=== PATIENT | female | born 1985 | race African-American/Black ===

== ENCOUNTER 2022-02-20 19:37 | Inpatient (IN) | payer OTHER ==
[~2022-02-20] VITALS: Ht 162.6 cm; Wt 83.0 kg
[2022-02-20 19:37] VITALS: BP 121/80
[2022-02-20] MEDS ORDERED: PROCHLORPERAZINE 10MG/2ML VIAL IV PRN (23:15)
[2022-02-20] MEDS ORDERED: MAGNESIUM/ALUMINUM HYDROXIDE/SIMETHICONE 30ML UDC PO PRN (23:15)
[2022-02-20] MEDS ORDERED: HALOPERIDOL LACTATE 5MG/ML VIAL IM PRN (23:15)
[2022-02-20] MEDS ORDERED: BISACODYL 10MG SUPP PR PRN (23:15)
[2022-02-20] MEDS ORDERED: POTASSIUM CHLORIDE INJ 40 MEQ in DEXT 5% WATER 250 ML IV PRN (23:15)
[2022-02-20] MEDS ORDERED: KCL 20MEQ/100ML PREMIX 100 ML IV PRN (23:15)
[2022-02-20] MEDS ORDERED: SENNOSIDES/DOCUSATE SOD 8.6/50MG TABLET PO PRN (23:15)
[2022-02-20] MEDS ORDERED: TOBRAMYCIN 80 MG PREMIX 100 ML IV SCH (23:15)
[2022-02-20] MEDS ORDERED: POTASSIUM BICARB/CIT ACID 25 MEQ TABLET.EFF PO PRN (23:15)
[2022-02-21] MEDS ORDERED: *TOBRAMYCIN PER PHARMACY XX SCH (01:30)
[2022-02-21] MEDS: MEROPENEM 1,000 MG in SODIUM CHLORIDE 0.9% 100 ML IV SCH ×3 (03:05→21:27)
[2022-02-21] MEDS ORDERED: TOBRAMYCIN SULFATE IV SCH (05:00)
[2022-02-21] MEDS ORDERED: DEXT 5% IV SCH (05:00)
[2022-02-21] MEDS ORDERED: WATER IV SCH (05:00)
[2022-02-21] MEDS: ALBUTEROL (0.083%) 2.5MG/3ML NEB HHN SCH ×3 (07:41→20:16)
[2022-02-21 08:00] VITALS: BP 111/71
[2022-02-21] MEDS: FERROUS SULFATE 300MG/5ML UDC PO SCH ×3 (08:32→18:53)
[2022-02-21] MEDS: QUETIAPINE FUMARATE 25MG TABLET PO SCH ×2 (08:33→18:53)
[2022-02-21] MEDS: METHOCARBAMOL 500MG TABLET PO SCH ×3 (08:33→18:53)
[2022-02-21] MEDS: MAGNESIUM OXIDE 400MG TABLET PO SCH (08:33)
[2022-02-21] MEDS: ASCORBIC ACID 500 MG TABLET PO SCH (08:33)
[2022-02-21] MEDS: SCOPOLAMINE HYDROBROMIDE PATCH 72HR TD SCH (08:34)
[2022-02-21] MEDS: PANTOPRAZOLE 40MG DR TABLET PO SCH ×2 (08:34→18:53)
[2022-02-21] MEDS: ENOXAPARIN 40MG/0.4ML SYR SUBCUT SCH (08:35)
[2022-02-21] MEDS ORDERED: LEVETIRACETAM 500MG PREMIX 100 ML IV SCH (09:00)
[2022-02-21] MEDS: POLYETHYLENE GLYCOL 3350 (17GM) 1 DOSE PACK PO SCH (09:00)
[2022-02-21] MEDS: POTASSIUM CHLORIDE 20MEQ TABLET SR PO SCH (09:00)
[2022-02-21] MEDS: MICAFUNGIN 100 MG in SODIUM CHLORIDE 0.9% 100 ML IV SCH (15:57)
[2022-02-21] MEDS ORDERED: LORAZEPAM 1MG TABLET PO NR (16:15)
[2022-02-21] MEDS: TOBRAMYCIN SULFATE 140 MG in SODIUM CHLORIDE 0.9% 100 ML IV SCH (19:16)
[2022-02-21 20:00] VITALS: BP 96/55
[2022-02-21] MEDS ORDERED: EPOETIN ALFA 4000UNITS/ML VIAL SUBCUT SCH (21:00)
[2022-02-21] MEDS: LEVETIRACETAM 500MG TABLET PO SCH (21:27)
[2022-02-22] VITALS: BP 119/69
[2022-02-22 00:10] LABS: CLARITY URINE CLEAR (CLEAR); COLOR URINE YELLOW (YELLOW); KETONES URINE NEGATIVE (NEGATIVE); LEUKOCYTE ESTERASE URINE NEGATIVE (NEGATIVE); NITRITE URINE NEGATIVE (NEGATIVE); OCCULT BLOOD URINE NEGATIVE (NEGATIVE); PH URINE 6.5 (4.5-8.0); PROTEIN URINE NEGATIVE (NEGATIVE); SPECIFIC GRAVITY URINE 1.017 (1.005-1.030); UROBILINOGEN URINE 0.2 E.U./dL (0.2-1.0)
[2022-02-22] MEDS: ALBUTEROL (0.083%) 2.5MG/3ML NEB HHN SCH ×4 (01:10→21:49)
[2022-02-22] MEDS: MEROPENEM 1,000 MG in SODIUM CHLORIDE 0.9% 100 ML IV SCH ×3 (05:17→21:24)
[2022-02-22] MEDS: TOBRAMYCIN SULFATE 140 MG in SODIUM CHLORIDE 0.9% 100 ML IV SCH ×2 (06:09→18:16)
[2022-02-22 08:00] VITALS: BP 99/59
[2022-02-22] MEDS: FERROUS SULFATE 300MG/5ML UDC PO SCH ×3 (09:00→16:53)
[2022-02-22] MEDS: ENOXAPARIN 40MG/0.4ML SYR SUBCUT SCH (09:00)
[2022-02-22] MEDS: POLYETHYLENE GLYCOL 3350 (17GM) 1 DOSE PACK PO SCH (09:09)
[2022-02-22] MEDS: PANTOPRAZOLE 40MG DR TABLET PO SCH ×2 (09:11→16:56)
[2022-02-22] MEDS: LEVETIRACETAM 500MG TABLET PO SCH ×2 (09:11→21:27)
[2022-02-22] MEDS: QUETIAPINE FUMARATE 25MG TABLET PO SCH ×2 (09:11→16:56)
[2022-02-22] MEDS: POTASSIUM CHLORIDE 20MEQ TABLET SR PO SCH (09:11)
[2022-02-22] MEDS: ASCORBIC ACID 500 MG TABLET PO SCH (09:12)
[2022-02-22] MEDS: METHOCARBAMOL 500MG TABLET PO SCH ×3 (09:12→16:56)
[2022-02-22] MEDS: MAGNESIUM OXIDE 400MG TABLET PO SCH (09:13)
[2022-02-22 10:01] LABS: BASOPHILS % 0.9 % (0.0-2.0); HEMATOCRIT. 35.3 % (36.0-48.0); HEMOGLOBIN. 11.4 g/dL (12.0-16.0); LYMPHOCYTES % 27.4 % (20.0-50.0); MEAN CORPUSCULAR VOLUME 86.9 fL (81.0-99.0); MEAN PLATELET VOLUME 8.2 fl (7.4-10.4); MONOCYTES % 5.4 % (2.0-8.0); NEUTROPHILS % 63.3 % (40.0-76.0); PLATELET 363 x1000/uL (130-400); RED BLOOD CELL COUNT 4.07 mill/uL (4.2-5.4); RED CELL DISTRIBUTION WIDTH 15.1 % (11.6-14.6)
[2022-02-22 10:04] LABS: CHLORIDE 104 mEq/L (98-107)
[2022-02-22 10:21] LABS: HDL CHOLESTEROL 48 mg/dL (40-59); LDL CHOLESTEROL 127 mg/dL (5-100); TOBRAMYCIN RANDOM 3.1 ucg/mL; TOTAL IRON BINDING CAPACITY 300 ug/dL (250-450)
[2022-02-22 11:27] LABS: FOLIC ACID (FOLATE) SERUM 7.1 ng/mL (>5.38)
[2022-02-22] MEDS: MICAFUNGIN 100 MG in SODIUM CHLORIDE 0.9% 100 ML IV SCH (14:18)
[2022-02-22] MEDS: CYANOCOBALAMIN 1000MCG/ML VIAL IM SCH (15:36)
[2022-02-22 20:00] VITALS: BP 98/54
[2022-02-23] VITALS: BP 99/64
[2022-02-23] MEDS: ALBUTEROL (0.083%) 2.5MG/3ML NEB HHN SCH ×2 (01:44→22:03)
[2022-02-23] MEDS: MEROPENEM 1,000 MG in SODIUM CHLORIDE 0.9% 100 ML IV SCH ×2 (05:04→16:51)
[2022-02-23] MEDS: TOBRAMYCIN SULFATE 140 MG in SODIUM CHLORIDE 0.9% 100 ML IV SCH ×2 (05:56→21:07)
[2022-02-23 08:00] VITALS: BP 108/76
[2022-02-23] MEDS: POLYETHYLENE GLYCOL 3350 (17GM) 1 DOSE PACK PO SCH (09:00)
[2022-02-23] MEDS: FERROUS SULFATE 300MG/5ML UDC PO SCH ×4 (09:00→17:00)
[2022-02-23] MEDS: METHOCARBAMOL 500MG TABLET PO SCH ×3 (10:06→16:52)
[2022-02-23] MEDS: MAGNESIUM OXIDE 400MG TABLET PO SCH (10:07)
[2022-02-23] MEDS: CYANOCOBALAMIN 1000MCG/ML VIAL IM SCH (10:07)
[2022-02-23] MEDS: ASCORBIC ACID 500 MG TABLET PO SCH (10:07)
[2022-02-23] MEDS: PANTOPRAZOLE 40MG DR TABLET PO SCH ×2 (10:07→16:51)
[2022-02-23] MEDS: QUETIAPINE FUMARATE 25MG TABLET PO SCH ×2 (10:08→16:51)
[2022-02-23] MEDS: LEVETIRACETAM 500MG TABLET PO SCH ×2 (10:08→20:59)
[2022-02-23] MEDS: POTASSIUM CHLORIDE 20MEQ TABLET SR PO SCH (10:08)
[2022-02-23] MEDS: ENOXAPARIN 40MG/0.4ML SYR SUBCUT SCH (10:20)
[2022-02-23] MEDS: MICAFUNGIN 100 MG in SODIUM CHLORIDE 0.9% 100 ML IV SCH (14:25)
[2022-02-23 20:00] VITALS: BP 96/56
[2022-02-24] MEDS: ALBUTEROL (0.083%) 2.5MG/3ML NEB HHN SCH ×3 (07:42→21:00)
[2022-02-24 08:00] VITALS: BP 117/71
[2022-02-24] MEDS: FERROUS SULFATE 300MG/5ML UDC PO SCH ×3 (08:45→16:21)
[2022-02-24] MEDS: CYANOCOBALAMIN 1000MCG/ML VIAL IM SCH (08:45)
[2022-02-24] MEDS: ENOXAPARIN 40MG/0.4ML SYR SUBCUT SCH (08:45)
[2022-02-24] MEDS: SCOPOLAMINE HYDROBROMIDE PATCH 72HR TD SCH (08:45)
[2022-02-24] MEDS: LEVETIRACETAM 500MG TABLET PO SCH ×2 (09:00→21:55)
[2022-02-24] MEDS: POLYETHYLENE GLYCOL 3350 (17GM) 1 DOSE PACK PO SCH (10:10)
[2022-02-24] MEDS: METHOCARBAMOL 500MG TABLET PO SCH ×2 (13:53→16:24)
[2022-02-24] MEDS: MEROPENEM 1,000 MG in SODIUM CHLORIDE 0.9% 100 ML IV SCH ×2 (13:54→21:56)
[2022-02-24] MEDS: MICAFUNGIN 100 MG in SODIUM CHLORIDE 0.9% 100 ML IV SCH (15:04)
[2022-02-24] MEDS: QUETIAPINE FUMARATE 25MG TABLET PO SCH (16:17)
[2022-02-24] MEDS: PANTOPRAZOLE 40MG DR TABLET PO SCH (16:17)
[2022-02-24] MEDS: TOBRAMYCIN SULFATE 140 MG in SODIUM CHLORIDE 0.9% 100 ML IV SCH (18:11)
[2022-02-24 20:06] VITALS: BP 105/50
[2022-02-25] MEDS: MEROPENEM 1,000 MG in SODIUM CHLORIDE 0.9% 100 ML IV SCH ×3 (05:19→21:10)
[2022-02-25] MEDS: TOBRAMYCIN SULFATE 140 MG in SODIUM CHLORIDE 0.9% 100 ML IV SCH ×2 (06:48→19:09)
[2022-02-25 08:00] VITALS: BP 117/71
[2022-02-25] MEDS: FERROUS SULFATE 300MG/5ML UDC PO SCH ×3 (10:10→17:00)
[2022-02-25] MEDS: ASCORBIC ACID 500 MG TABLET PO SCH ×2 (10:10→10:11)
[2022-02-25] MEDS: POTASSIUM CHLORIDE 20MEQ TABLET SR PO SCH ×2 (10:10→10:11)
[2022-02-25] MEDS: CYANOCOBALAMIN 1000MCG/ML VIAL IM SCH (10:10)
[2022-02-25] MEDS: POLYETHYLENE GLYCOL 3350 (17GM) 1 DOSE PACK PO SCH (10:10)
[2022-02-25] MEDS: ENOXAPARIN 40MG/0.4ML SYR SUBCUT SCH (10:10)
[2022-02-25] MEDS: MAGNESIUM OXIDE 400MG TABLET PO SCH ×2 (10:10→10:11)
[2022-02-25] MEDS: METHOCARBAMOL 500MG TABLET PO SCH ×3 (10:11→18:05)
[2022-02-25] MEDS: PANTOPRAZOLE 40MG DR TABLET PO SCH ×2 (10:11→18:05)
[2022-02-25] MEDS: LEVETIRACETAM 500MG TABLET PO SCH ×2 (10:11→21:10)
[2022-02-25] MEDS: QUETIAPINE FUMARATE 25MG TABLET PO SCH ×2 (10:11→18:05)
[2022-02-25] MEDS: ALBUTEROL (0.083%) 2.5MG/3ML NEB HHN SCH ×3 (10:25→21:05)
[2022-02-25] MEDS: MICAFUNGIN 100 MG in SODIUM CHLORIDE 0.9% 100 ML IV SCH (16:55)
[2022-02-25 20:14] VITALS: BP 116/73
[2022-02-26] MEDS: ALBUTEROL (0.083%) 2.5MG/3ML NEB HHN SCH ×2 (02:50→22:09)
[2022-02-26 03:11] LABS: BASOPHILS % 0.8 % (0.0-2.0); EOSINOPHILS % 6.7 % (0.0-5.0); HEMATOCRIT. 31.1 % (36.0-48.0); HEMOGLOBIN. 10.3 g/dL (12.0-16.0); LYMPHOCYTES % 36.4 % (20.0-50.0); MEAN CORPUSCULAR HEMOGLOBIN 28.5 pg (28.0-32.0); MEAN CORPUSCULAR VOLUME 86.6 fL (81.0-99.0); MEAN PLATELET VOLUME 7.7 fl (7.4-10.4); MONOCYTES % 8.9 % (2.0-8.0); NEUTROPHILS % 47.2 % (40.0-76.0); PLATELET 275 x1000/uL (130-400); RED BLOOD CELL COUNT 3.59 mill/uL (4.2-5.4); RED CELL DISTRIBUTION WIDTH 14.7 % (11.6-14.6)
[2022-02-26 03:25] LABS: CHLORIDE 107 mEq/L (98-107)
[2022-02-26 03:34] LABS: TOBRAMYCIN RANDOM 1.8 ucg/mL
[2022-02-26] MEDS: MEROPENEM 1,000 MG in SODIUM CHLORIDE 0.9% 100 ML IV SCH ×3 (05:51→21:02)
[2022-02-26] MEDS: TOBRAMYCIN SULFATE 140 MG in SODIUM CHLORIDE 0.9% 100 ML IV SCH ×2 (06:42→17:59)
[2022-02-26 08:00] VITALS: BP 114/76
[2022-02-26] MEDS: ENOXAPARIN 40MG/0.4ML SYR SUBCUT SCH (09:00)
[2022-02-26] MEDS: FERROUS SULFATE 300MG/5ML UDC PO SCH ×3 (09:00→17:53)
[2022-02-26] MEDS: POLYETHYLENE GLYCOL 3350 (17GM) 1 DOSE PACK PO SCH (09:00)
[2022-02-26] MEDS: MAGNESIUM OXIDE 400MG TABLET PO SCH (10:07)
[2022-02-26] MEDS: CYANOCOBALAMIN 1000MCG/ML VIAL IM SCH (10:07)
[2022-02-26] MEDS: PANTOPRAZOLE 40MG DR TABLET PO SCH ×2 (10:08→17:53)
[2022-02-26] MEDS: ASCORBIC ACID 500 MG TABLET PO SCH (10:08)
[2022-02-26] MEDS: QUETIAPINE FUMARATE 25MG TABLET PO SCH ×2 (10:08→17:53)
[2022-02-26] MEDS: METHOCARBAMOL 500MG TABLET PO SCH ×3 (10:08→17:53)
[2022-02-26] MEDS: POTASSIUM CHLORIDE 20MEQ TABLET SR PO SCH (10:08)
[2022-02-26] MEDS: LEVETIRACETAM 500MG TABLET PO SCH ×2 (10:11→21:01)
[2022-02-26] MEDS: MICAFUNGIN 100 MG in SODIUM CHLORIDE 0.9% 100 ML IV SCH (16:43)
[2022-02-26 20:00] VITALS: BP 98/54
[2022-02-26] MEDS: ATORVASTATIN CALCIUM 10MG TABLET PO SCH (21:02)
[2022-02-27] MEDS: MEROPENEM 1,000 MG in SODIUM CHLORIDE 0.9% 100 ML IV SCH ×3 (06:30→21:55)
[2022-02-27 08:00] VITALS: BP 116/86
[2022-02-27] MEDS: SCOPOLAMINE HYDROBROMIDE PATCH 72HR TD SCH (09:00)
[2022-02-27] MEDS: POLYETHYLENE GLYCOL 3350 (17GM) 1 DOSE PACK PO SCH (09:00)
[2022-02-27] MEDS: CYANOCOBALAMIN 1000MCG/ML VIAL IM SCH (09:57)
[2022-02-27] MEDS: MAGNESIUM OXIDE 400MG TABLET PO SCH (09:58)
[2022-02-27] MEDS: FERROUS SULFATE 300MG/5ML UDC PO SCH ×3 (09:58→16:56)
[2022-02-27] MEDS: LEVETIRACETAM 500MG TABLET PO SCH ×2 (09:58→21:55)
[2022-02-27] MEDS: METHOCARBAMOL 500MG TABLET PO SCH ×3 (09:58→16:56)
[2022-02-27] MEDS: QUETIAPINE FUMARATE 25MG TABLET PO SCH ×2 (09:58→16:58)
[2022-02-27] MEDS: PANTOPRAZOLE 40MG DR TABLET PO SCH ×2 (09:58→16:56)
[2022-02-27] MEDS: ASCORBIC ACID 500 MG TABLET PO SCH (09:58)
[2022-02-27] MEDS: ENOXAPARIN 40MG/0.4ML SYR SUBCUT SCH (09:58)
[2022-02-27] MEDS: POTASSIUM CHLORIDE 20MEQ TABLET SR PO SCH (09:58)
[2022-02-27] MEDS: TOBRAMYCIN SULFATE 140 MG in SODIUM CHLORIDE 0.9% 100 ML IV SCH ×2 (13:02→23:48)
[2022-02-27] MEDS: MICAFUNGIN 100 MG in SODIUM CHLORIDE 0.9% 100 ML IV SCH (16:56)
[2022-02-27 19:06] LABS: 25-HYDROXY VITAMIN D3 27 ng/mL (.)
[2022-02-27 20:00] VITALS: BP 104/56
[2022-02-27] MEDS: ATORVASTATIN CALCIUM 10MG TABLET PO SCH (21:55)
[2022-02-28] MEDS: MEROPENEM 1,000 MG in SODIUM CHLORIDE 0.9% 100 ML IV SCH ×3 (06:11→21:04)
[2022-02-28 08:00] VITALS: BP 90/46
[2022-02-28] MEDS: MAGNESIUM OXIDE 400MG TABLET PO SCH (09:00)
[2022-02-28] MEDS: FERROUS SULFATE 300MG/5ML UDC PO SCH ×4 (09:00→17:00)
[2022-02-28] MEDS: POLYETHYLENE GLYCOL 3350 (17GM) 1 DOSE PACK PO SCH (09:00)
[2022-02-28] MEDS: CYANOCOBALAMIN 1000MCG/ML VIAL IM SCH (09:00)
[2022-02-28] MEDS: PANTOPRAZOLE 40MG DR TABLET PO SCH ×2 (09:45→17:05)
[2022-02-28] MEDS: LEVETIRACETAM 500MG TABLET PO SCH ×2 (09:45→21:05)
[2022-02-28] MEDS: METHOCARBAMOL 500MG TABLET PO SCH ×3 (09:45→17:05)
[2022-02-28] MEDS: ASCORBIC ACID 500 MG TABLET PO SCH (09:45)
[2022-02-28] MEDS: QUETIAPINE FUMARATE 25MG TABLET PO SCH ×2 (09:45→17:05)
[2022-02-28] MEDS: POTASSIUM CHLORIDE 20MEQ TABLET SR PO SCH (09:54)
[2022-02-28] MEDS: ENOXAPARIN 40MG/0.4ML SYR SUBCUT SCH (09:55)
[2022-02-28] MEDS: TOBRAMYCIN SULFATE 140 MG in SODIUM CHLORIDE 0.9% 100 ML IV SCH (12:59)
[2022-02-28] MEDS: MICAFUNGIN 100 MG in SODIUM CHLORIDE 0.9% 100 ML IV SCH (16:33)
[2022-02-28] MEDS: ERGOCALCIFEROL 50000UNITS CAPSULE PO SCH (17:05)
[2022-02-28 20:00] VITALS: BP 111/54
[2022-02-28] MEDS: ATORVASTATIN CALCIUM 10MG TABLET PO SCH (21:05)
[2022-03-01] MEDS: TOBRAMYCIN SULFATE 140 MG in SODIUM CHLORIDE 0.9% 100 ML IV SCH ×3 (00:36→23:53)
[2022-03-01] MEDS: ALBUTEROL (0.083%) 2.5MG/3ML NEB HHN SCH ×4 (01:21→20:30)
[2022-03-01] MEDS: MEROPENEM 1,000 MG in SODIUM CHLORIDE 0.9% 100 ML IV SCH ×3 (05:35→22:07)
[2022-03-01 08:00] VITALS: BP 119/90
[2022-03-01] MEDS: POTASSIUM CHLORIDE 20MEQ TABLET SR PO SCH (08:11)
[2022-03-01] MEDS: FERROUS SULFATE 300MG/5ML UDC PO SCH ×3 (08:11→16:09)
[2022-03-01] MEDS: PANTOPRAZOLE 40MG DR TABLET PO SCH ×2 (08:11→16:08)
[2022-03-01] MEDS: METHOCARBAMOL 500MG TABLET PO SCH ×3 (08:11→16:08)
[2022-03-01] MEDS: LEVETIRACETAM 500MG TABLET PO SCH ×2 (08:11→20:41)
[2022-03-01] MEDS: QUETIAPINE FUMARATE 25MG TABLET PO SCH ×2 (08:12→16:09)
[2022-03-01] MEDS: ASCORBIC ACID 500 MG TABLET PO SCH (08:13)
[2022-03-01] MEDS: POLYETHYLENE GLYCOL 3350 (17GM) 1 DOSE PACK PO SCH (08:15)
[2022-03-01] MEDS: ENOXAPARIN 40MG/0.4ML SYR SUBCUT SCH (08:15)
[2022-03-01] MEDS: MAGNESIUM OXIDE 400MG TABLET PO SCH (08:17)
[2022-03-01] MEDS: MICAFUNGIN 100 MG in SODIUM CHLORIDE 0.9% 100 ML IV SCH (16:11)
[2022-03-01 20:00] VITALS: BP 113/71
[2022-03-01] MEDS: ATORVASTATIN CALCIUM 10MG TABLET PO SCH (20:41)
[2022-03-02] MEDS: MEROPENEM 1,000 MG in SODIUM CHLORIDE 0.9% 100 ML IV SCH ×3 (05:01→22:22)
[2022-03-02 06:09] LABS: BASOPHILS % 0.9 % (0.0-2.0); EOSINOPHILS % 5.5 % (0.0-5.0); HEMATOCRIT. 29.5 % (36.0-48.0); HEMOGLOBIN. 9.8 g/dL (12.0-16.0); MEAN CORPUSCULAR HEMOGLOBIN 28.9 pg (28.0-32.0); MEAN CORPUSCULAR VOLUME 87.2 fL (81.0-99.0); MEAN PLATELET VOLUME 8.2 fl (7.4-10.4); MONOCYTES % 9.8 % (2.0-8.0); NEUTROPHILS % 49.8 % (40.0-76.0); PLATELET 247 x1000/uL (130-400); RED BLOOD CELL COUNT 3.38 mill/uL (4.2-5.4); RED CELL DISTRIBUTION WIDTH 14.3 % (11.6-14.6)
[2022-03-02 06:20] LABS: HCG SCREEN NEGATIVE
[2022-03-02 06:24] LABS: CHLORIDE 105 mEq/L (98-107)
[2022-03-02 08:00] VITALS: BP 138/93
[2022-03-02] MEDS: METHOCARBAMOL 500MG TABLET PO SCH ×3 (08:40→16:27)
[2022-03-02] MEDS: ASCORBIC ACID 500 MG TABLET PO SCH (08:40)
[2022-03-02] MEDS: POLYETHYLENE GLYCOL 3350 (17GM) 1 DOSE PACK PO SCH (08:40)
[2022-03-02] MEDS: PANTOPRAZOLE 40MG DR TABLET PO SCH ×2 (08:40→16:27)
[2022-03-02] MEDS: LEVETIRACETAM 500MG TABLET PO SCH ×2 (08:40→21:30)
[2022-03-02] MEDS: QUETIAPINE FUMARATE 25MG TABLET PO SCH ×2 (08:40→16:27)
[2022-03-02] MEDS: FERROUS SULFATE 300MG/5ML UDC PO SCH ×3 (08:40→16:27)
[2022-03-02] MEDS: POTASSIUM CHLORIDE 20MEQ TABLET SR PO SCH (08:40)
[2022-03-02] MEDS: ENOXAPARIN 40MG/0.4ML SYR SUBCUT SCH (08:41)
[2022-03-02] MEDS: MAGNESIUM OXIDE 400MG TABLET PO SCH (08:42)
[2022-03-02] MEDS: SCOPOLAMINE HYDROBROMIDE PATCH 72HR TD SCH ×2 (08:43→08:50)
[2022-03-02] MEDS ORDERED: ALBUTEROL (0.083%) 2.5MG/3ML NEB HHN PRN (12:15)
[2022-03-02] MEDS: TOBRAMYCIN SULFATE 140 MG in SODIUM CHLORIDE 0.9% 100 ML IV SCH ×2 (12:16→23:12)
[2022-03-02] MEDS: MICAFUNGIN 100 MG in SODIUM CHLORIDE 0.9% 100 ML IV SCH (16:27)
[2022-03-02 20:00] VITALS: BP 126/51
[2022-03-02] MEDS: ATORVASTATIN CALCIUM 10MG TABLET PO SCH (21:30)
[2022-03-03] MEDS: MEROPENEM 1,000 MG in SODIUM CHLORIDE 0.9% 100 ML IV SCH ×3 (05:16→21:28)
[2022-03-03 06:50] LABS: BASOPHILS % 0.7 % (0.0-2.0); EOSINOPHILS % 5.3 % (0.0-5.0); HEMATOCRIT. 29.3 % (36.0-48.0); HEMOGLOBIN. 9.7 g/dL (12.0-16.0); LYMPHOCYTES % 30.1 % (20.0-50.0); MEAN CORPUSCULAR HEMOGLOBIN 28.7 pg (28.0-32.0); MEAN CORPUSCULAR VOLUME 87.1 fL (81.0-99.0); MEAN PLATELET VOLUME 8.6 fl (7.4-10.4); MONOCYTES % 9.9 % (2.0-8.0); PLATELET 258 x1000/uL (130-400); RED BLOOD CELL COUNT 3.36 mill/uL (4.2-5.4); RED CELL DISTRIBUTION WIDTH 14.7 % (11.6-14.6)
[2022-03-03 08:00] VITALS: BP 124/79
[2022-03-03] MEDS: ENOXAPARIN 40MG/0.4ML SYR SUBCUT SCH (09:00)
[2022-03-03] MEDS: POLYETHYLENE GLYCOL 3350 (17GM) 1 DOSE PACK PO SCH (09:00)
[2022-03-03] MEDS: MAGNESIUM OXIDE 400MG TABLET PO SCH (10:22)
[2022-03-03] MEDS: FERROUS SULFATE 300MG/5ML UDC PO SCH ×3 (10:22→17:01)
[2022-03-03] MEDS: METHOCARBAMOL 500MG TABLET PO SCH ×3 (10:22→17:01)
[2022-03-03] MEDS: PANTOPRAZOLE 40MG DR TABLET PO SCH ×2 (10:22→17:01)
[2022-03-03] MEDS: ASCORBIC ACID 500 MG TABLET PO SCH (10:22)
[2022-03-03] MEDS: QUETIAPINE FUMARATE 25MG TABLET PO SCH ×2 (10:22→17:01)
[2022-03-03] MEDS: LEVETIRACETAM 500MG TABLET PO SCH ×2 (10:22→20:36)
[2022-03-03] MEDS: POTASSIUM CHLORIDE 20MEQ TABLET SR PO SCH (10:22)
[2022-03-03] MEDS: TOBRAMYCIN SULFATE 140 MG in SODIUM CHLORIDE 0.9% 100 ML IV SCH (12:48)
[2022-03-03] MEDS: MICAFUNGIN 100 MG in SODIUM CHLORIDE 0.9% 100 ML IV SCH (17:00)
[2022-03-03] MEDS: ATORVASTATIN CALCIUM 10MG TABLET PO SCH (20:36)
[2022-03-04 08:00] VITALS: BP 108/71
[2022-03-04] MEDS: POLYETHYLENE GLYCOL 3350 (17GM) 1 DOSE PACK PO SCH (09:00)
[2022-03-04] MEDS: LEVETIRACETAM 500MG TABLET PO SCH ×2 (09:50→23:19)
[2022-03-04] MEDS: QUETIAPINE FUMARATE 25MG TABLET PO SCH ×2 (09:50→17:09)
[2022-03-04] MEDS: ENOXAPARIN 40MG/0.4ML SYR SUBCUT SCH (09:50)
[2022-03-04] MEDS: PANTOPRAZOLE 40MG DR TABLET PO SCH ×2 (09:50→17:08)
[2022-03-04] MEDS: MAGNESIUM OXIDE 400MG TABLET PO SCH (09:51)
[2022-03-04] MEDS: POTASSIUM CHLORIDE 20MEQ TABLET SR PO SCH (09:51)
[2022-03-04] MEDS: METHOCARBAMOL 500MG TABLET PO SCH ×3 (09:51→17:08)
[2022-03-04] MEDS: ASCORBIC ACID 500 MG TABLET PO SCH (09:51)
[2022-03-04] MEDS: FERROUS SULFATE 300MG/5ML UDC PO SCH ×3 (09:58→17:08)
[2022-03-04 20:00] VITALS: BP 97/60
[2022-03-04] MEDS: ATORVASTATIN CALCIUM 10MG TABLET PO SCH (23:19)
[2022-03-05 06:32] LABS: BASOPHILS % 0.9 % (0.0-2.0); EOSINOPHILS % 3.4 % (0.0-5.0); HEMATOCRIT. 32.1 % (36.0-48.0); HEMOGLOBIN. 10.6 g/dL (12.0-16.0); LYMPHOCYTES % 34.4 % (20.0-50.0); MEAN CORPUSCULAR HEMOGLOBIN 29.4 pg (28.0-32.0); MEAN CORPUSCULAR VOLUME 88.6 fL (81.0-99.0); MEAN PLATELET VOLUME 8.2 fl (7.4-10.4); MONOCYTES % 7.6 % (2.0-8.0); NEUTROPHILS % 53.7 % (40.0-76.0); PLATELET 297 x1000/uL (130-400); RED BLOOD CELL COUNT 3.62 mill/uL (4.2-5.4); RED CELL DISTRIBUTION WIDTH 14.9 % (11.6-14.6)
[2022-03-05 06:36] LABS: PROTHROMBIN TIME 10.6 sec (9.6-11.0)
[2022-03-05 06:52] LABS: CHLORIDE 104 mEq/L (98-107)
[2022-03-05 08:00] VITALS: BP 121/61
[2022-03-05] MEDS: FERROUS SULFATE 300MG/5ML UDC PO SCH ×2 (08:13→13:00)
[2022-03-05] MEDS: ENOXAPARIN 40MG/0.4ML SYR SUBCUT SCH (08:13)
[2022-03-05] MEDS: ASCORBIC ACID 500 MG TABLET PO SCH (08:14)
[2022-03-05] MEDS: PANTOPRAZOLE 40MG DR TABLET PO SCH ×2 (08:14→17:05)
[2022-03-05] MEDS: QUETIAPINE FUMARATE 25MG TABLET PO SCH ×2 (08:14→17:05)
[2022-03-05] MEDS: SCOPOLAMINE HYDROBROMIDE PATCH 72HR TD SCH ×2 (08:14→08:21)
[2022-03-05] MEDS: LEVETIRACETAM 500MG TABLET PO SCH ×2 (08:14→20:57)
[2022-03-05] MEDS: MAGNESIUM OXIDE 400MG TABLET PO SCH (08:14)
[2022-03-05] MEDS: POTASSIUM CHLORIDE 20MEQ TABLET SR PO SCH (08:14)
[2022-03-05] MEDS: POLYETHYLENE GLYCOL 3350 (17GM) 1 DOSE PACK PO SCH (08:15)
[2022-03-05] MEDS: METHOCARBAMOL 500MG TABLET PO SCH ×3 (08:15→17:05)
[2022-03-05] MEDS: IRON SUCROSE COMPLEX 100 MG/5 ML ML IV SCH (17:04)
[2022-03-05 20:00] VITALS: BP 88/50
[2022-03-05 20:10] VITALS: BP 97/53
[2022-03-05] MEDS: ATORVASTATIN CALCIUM 10MG TABLET PO SCH (20:57)
[2022-03-06 08:00] VITALS: BP 126/69
[2022-03-06] MEDS: POLYETHYLENE GLYCOL 3350 (17GM) 1 DOSE PACK PO SCH (09:00)
[2022-03-06] MEDS: FOLIC ACID 1MG TABLET PO SCH (09:44)
[2022-03-06] MEDS: POTASSIUM CHLORIDE 20MEQ TABLET SR PO SCH (09:44)
[2022-03-06] MEDS: QUETIAPINE FUMARATE 25MG TABLET PO SCH ×2 (09:44→16:15)
[2022-03-06] MEDS: ENOXAPARIN 40MG/0.4ML SYR SUBCUT SCH (09:44)
[2022-03-06] MEDS: MAGNESIUM OXIDE 400MG TABLET PO SCH (09:44)
[2022-03-06] MEDS: ASCORBIC ACID 500 MG TABLET PO SCH (09:45)
[2022-03-06] MEDS: METHOCARBAMOL 500MG TABLET PO SCH ×3 (09:45→16:14)
[2022-03-06] MEDS: PANTOPRAZOLE 40MG DR TABLET PO SCH ×2 (09:54→16:15)
[2022-03-06] MEDS: LEVETIRACETAM 500MG TABLET PO SCH ×2 (09:54→20:32)
[2022-03-06] MEDS: IRON SUCROSE COMPLEX 100 MG/5 ML ML IV SCH (15:17)
[2022-03-06 20:20] VITALS: BP 141/81
[2022-03-06] MEDS: ATORVASTATIN CALCIUM 10MG TABLET PO SCH (20:32)
[2022-03-07 08:00] VITALS: BP 125/90
[2022-03-07] MEDS: POLYETHYLENE GLYCOL 3350 (17GM) 1 DOSE PACK PO SCH ×2 (08:05→08:48)
[2022-03-07] MEDS: MAGNESIUM OXIDE 400MG TABLET PO SCH (08:06)
[2022-03-07] MEDS: FOLIC ACID 1MG TABLET PO SCH (08:06)
[2022-03-07] MEDS: ENOXAPARIN 40MG/0.4ML SYR SUBCUT SCH (08:06)
[2022-03-07] MEDS: POTASSIUM CHLORIDE 20MEQ TABLET SR PO SCH (08:06)
[2022-03-07] MEDS: PANTOPRAZOLE 40MG DR TABLET PO SCH ×2 (08:06→16:59)
[2022-03-07] MEDS: ASCORBIC ACID 500 MG TABLET PO SCH (08:06)
[2022-03-07] MEDS: METHOCARBAMOL 500MG TABLET PO SCH ×3 (08:06→16:59)
[2022-03-07] MEDS: LEVETIRACETAM 500MG TABLET PO SCH ×2 (08:12→21:14)
[2022-03-07] MEDS: ERGOCALCIFEROL 50000UNITS CAPSULE PO SCH (08:13)
[2022-03-07] MEDS: QUETIAPINE FUMARATE 25MG TABLET PO SCH ×2 (08:13→16:59)
[2022-03-07] MEDS: IRON SUCROSE COMPLEX 100 MG/5 ML ML IV SCH (15:18)
[2022-03-07 20:14] VITALS: BP 110/59
[2022-03-07] MEDS: ATORVASTATIN CALCIUM 10MG TABLET PO SCH (21:14)
[2022-03-07] MEDS: ACETAMINOPHEN 325MG TABLET PO PRN (21:15)
[2022-03-08 06:17] LABS: CHLORIDE 106 mEq/L (98-107)
[2022-03-08 06:19] LABS: BASOPHILS % 0.6 % (0.0-2.0); EOSINOPHILS % 4.2 % (0.0-5.0); HEMATOCRIT. 32.4 % (36.0-48.0); HEMOGLOBIN. 10.5 g/dL (12.0-16.0); LYMPHOCYTES % 37.9 % (20.0-50.0); MEAN CORPUSCULAR HEMOGLOBIN 29.3 pg (28.0-32.0); MEAN CORPUSCULAR VOLUME 90.3 fL (81.0-99.0); MEAN PLATELET VOLUME 8.6 fl (7.4-10.4); MONOCYTES % 8.2 % (2.0-8.0); NEUTROPHILS % 49.1 % (40.0-76.0); PLATELET 311 x1000/uL (130-400); RED BLOOD CELL COUNT 3.59 mill/uL (4.2-5.4); RED CELL DISTRIBUTION WIDTH 15.3 % (11.6-14.6)
[2022-03-08 08:00] VITALS: BP 128/82
[2022-03-08] MEDS: ENOXAPARIN 40MG/0.4ML SYR SUBCUT SCH (09:00)
[2022-03-08] MEDS: FOLIC ACID 1MG TABLET PO SCH (10:20)
[2022-03-08] MEDS: POLYETHYLENE GLYCOL 3350 (17GM) 1 DOSE PACK PO SCH (10:20)
[2022-03-08] MEDS: ACETAMINOPHEN 325MG TABLET PO PRN ×2 (10:21→21:33)
[2022-03-08] MEDS: METHOCARBAMOL 500MG TABLET PO SCH ×3 (10:21→17:40)
[2022-03-08] MEDS: ASCORBIC ACID 500 MG TABLET PO SCH ×3 (10:22→17:40)
[2022-03-08] MEDS: POTASSIUM CHLORIDE 20MEQ TABLET SR PO SCH (10:22)
[2022-03-08] MEDS: MAGNESIUM OXIDE 400MG TABLET PO SCH (10:22)
[2022-03-08] MEDS: PANTOPRAZOLE 40MG DR TABLET PO SCH ×2 (10:22→17:40)
[2022-03-08] MEDS: SCOPOLAMINE HYDROBROMIDE PATCH 72HR TD SCH (10:23)
[2022-03-08] MEDS: LEVETIRACETAM 500MG TABLET PO SCH ×2 (10:23→21:32)
[2022-03-08] MEDS: QUETIAPINE FUMARATE 25MG TABLET PO SCH ×2 (10:23→17:40)
[2022-03-08] MEDS: FERROUS SULFATE 300MG/5ML UDC PO SCH ×2 (12:47→17:00)
[2022-03-08 20:01] VITALS: BP 101/63
[2022-03-08] MEDS: ATORVASTATIN CALCIUM 10MG TABLET PO SCH (21:32)
[2022-03-09 05:41] LABS: CHLORIDE 105 mEq/L (98-107)
[2022-03-09 06:09] LABS: BASOPHILS % 0.8 % (0.0-2.0); EOSINOPHILS % 4.4 % (0.0-5.0); HEMOGLOBIN. 10.6 g/dL (12.0-16.0); LYMPHOCYTES % 35.3 % (20.0-50.0); MEAN CORPUSCULAR HEMOGLOBIN 28.7 pg (28.0-32.0); MEAN CORPUSCULAR VOLUME 89.3 fL (81.0-99.0); MEAN PLATELET VOLUME 8.3 fl (7.4-10.4); MONOCYTES % 9.9 % (2.0-8.0); NEUTROPHILS % 49.6 % (40.0-76.0); PLATELET 322 x1000/uL (130-400); RED CELL DISTRIBUTION WIDTH 15.3 % (11.6-14.6)
[2022-03-09 08:00] VITALS: BP 118/76
[2022-03-09] MEDS: ACETAMINOPHEN 325MG TABLET PO PRN ×2 (08:23→16:56)
[2022-03-09] MEDS: METHOCARBAMOL 500MG TABLET PO SCH ×3 (08:23→16:56)
[2022-03-09] MEDS: POLYETHYLENE GLYCOL 3350 (17GM) 1 DOSE PACK PO SCH (08:24)
[2022-03-09] MEDS: POTASSIUM CHLORIDE 20MEQ TABLET SR PO SCH (08:24)
[2022-03-09] MEDS: PANTOPRAZOLE 40MG DR TABLET PO SCH ×2 (08:24→16:50)
[2022-03-09] MEDS: QUETIAPINE FUMARATE 25MG TABLET PO SCH ×2 (08:24→16:51)
[2022-03-09] MEDS: ASCORBIC ACID 500 MG TABLET PO SCH ×2 (08:26→16:50)
[2022-03-09] MEDS: FERROUS SULFATE 300MG/5ML UDC PO SCH ×2 (08:26→16:50)
[2022-03-09] MEDS: FOLIC ACID 1MG TABLET PO SCH (08:26)
[2022-03-09] MEDS: LEVETIRACETAM 500MG TABLET PO SCH ×2 (08:26→20:26)
[2022-03-09] MEDS: MAGNESIUM OXIDE 400MG TABLET PO SCH (08:26)
[2022-03-09] MEDS: ENOXAPARIN 40MG/0.4ML SYR SUBCUT SCH (08:27)
[2022-03-09] MEDS ORDERED: ASCORBIC ACID 250 MG TABLET PO SCH (09:00)
[2022-03-09 20:00] VITALS: BP 101/63
[2022-03-09] MEDS: ATORVASTATIN CALCIUM 10MG TABLET PO SCH (20:26)
[2022-03-10 08:00] VITALS: BP 120/81
[2022-03-10] MEDS: POLYETHYLENE GLYCOL 3350 (17GM) 1 DOSE PACK PO SCH (09:00)
[2022-03-10] MEDS: METHOCARBAMOL 500MG TABLET PO SCH ×3 (09:00→17:05)
[2022-03-10] MEDS: ENOXAPARIN 40MG/0.4ML SYR SUBCUT SCH (11:29)
[2022-03-10] MEDS: FERROUS SULFATE 300MG/5ML UDC PO SCH ×2 (11:29→17:05)
[2022-03-10] MEDS: MAGNESIUM OXIDE 400MG TABLET PO SCH (11:29)
[2022-03-10] MEDS: QUETIAPINE FUMARATE 25MG TABLET PO SCH ×2 (11:30→17:06)
[2022-03-10] MEDS: LEVETIRACETAM 500MG TABLET PO SCH ×2 (11:30→22:15)
[2022-03-10] MEDS: POTASSIUM CHLORIDE 20MEQ TABLET SR PO SCH (11:30)
[2022-03-10] MEDS: FOLIC ACID 1MG TABLET PO SCH (11:31)
[2022-03-10] MEDS: ASCORBIC ACID 500 MG TABLET PO SCH ×2 (11:31→17:05)
[2022-03-10] MEDS: PANTOPRAZOLE 40MG DR TABLET PO SCH ×2 (11:31→17:05)
[2022-03-10 20:00] VITALS: BP 122/98
[2022-03-10] MEDS: ATORVASTATIN CALCIUM 10MG TABLET PO SCH (22:15)
[2022-03-11 06:00] LABS: CHLORIDE 107 mEq/L (98-107)
[2022-03-11 06:10] LABS: BASOPHILS % 0.8 % (0.0-2.0); EOSINOPHILS % 4.1 % (0.0-5.0); HEMATOCRIT. 33.6 % (36.0-48.0); HEMOGLOBIN. 10.9 g/dL (12.0-16.0); LYMPHOCYTES % 33.9 % (20.0-50.0); MEAN CORPUSCULAR VOLUME 89.2 fL (81.0-99.0); MEAN PLATELET VOLUME 8.3 fl (7.4-10.4); MONOCYTES % 9.5 % (2.0-8.0); NEUTROPHILS % 51.7 % (40.0-76.0); PLATELET 307 x1000/uL (130-400); RED BLOOD CELL COUNT 3.77 mill/uL (4.2-5.4); RED CELL DISTRIBUTION WIDTH 15.4 % (11.6-14.6)
[2022-03-11 08:00] VITALS: BP 128/89
[2022-03-11] MEDS: SCOPOLAMINE HYDROBROMIDE PATCH 72HR TD SCH (09:00)
[2022-03-11] MEDS: POLYETHYLENE GLYCOL 3350 (17GM) 1 DOSE PACK PO SCH (09:00)
[2022-03-11] MEDS: ENOXAPARIN 40MG/0.4ML SYR SUBCUT SCH (09:00)
[2022-03-11] MEDS ORDERED: KEPP500 PO (09:44)
[2022-03-11] MEDS ORDERED: QUET25TA PO (09:44)
[2022-03-11] MEDS: FERROUS SULFATE 300MG/5ML UDC PO SCH ×2 (09:54→16:46)
[2022-03-11] MEDS: PANTOPRAZOLE 40MG DR TABLET PO SCH ×2 (09:55→16:46)
[2022-03-11] MEDS: MAGNESIUM OXIDE 400MG TABLET PO SCH (09:55)
[2022-03-11] MEDS: METHOCARBAMOL 500MG TABLET PO SCH ×3 (09:55→16:46)
[2022-03-11] MEDS: FOLIC ACID 1MG TABLET PO SCH (09:55)
[2022-03-11] MEDS: ASCORBIC ACID 500 MG TABLET PO SCH ×2 (09:56→16:47)
[2022-03-11] MEDS: LEVETIRACETAM 500MG TABLET PO SCH ×2 (09:56→21:00)
[2022-03-11] MEDS: QUETIAPINE FUMARATE 25MG TABLET PO SCH (10:10)
[2022-03-11] MEDS: POTASSIUM CHLORIDE 20MEQ TABLET SR PO SCH (10:11)
[2022-03-11] MEDS: QUETIAPINE FUMARATE 50MG TABLET PO SCH (16:46)
[2022-03-11 20:00] VITALS: BP 104/59
[2022-03-11] MEDS: ATORVASTATIN CALCIUM 10MG TABLET PO SCH (21:00)
[2022-03-12 08:00] VITALS: BP 109/64
[2022-03-12] MEDS: POLYETHYLENE GLYCOL 3350 (17GM) 1 DOSE PACK PO SCH (09:00)
[2022-03-12] MEDS: FOLIC ACID 1MG TABLET PO SCH (09:29)
[2022-03-12] MEDS: POTASSIUM CHLORIDE 20MEQ TABLET SR PO SCH (09:29)
[2022-03-12] MEDS: ENOXAPARIN 40MG/0.4ML SYR SUBCUT SCH (09:29)
[2022-03-12] MEDS: FERROUS SULFATE 300MG/5ML UDC PO SCH ×2 (09:29→17:10)
[2022-03-12] MEDS: LEVETIRACETAM 500MG TABLET PO SCH ×2 (09:29→21:00)
[2022-03-12] MEDS: QUETIAPINE FUMARATE 50MG TABLET PO SCH ×2 (09:30→17:11)
[2022-03-12] MEDS: METHOCARBAMOL 500MG TABLET PO SCH ×3 (09:30→17:11)
[2022-03-12] MEDS: PANTOPRAZOLE 40MG DR TABLET PO SCH ×2 (09:30→17:11)
[2022-03-12] MEDS: MAGNESIUM OXIDE 400MG TABLET PO SCH (09:30)
[2022-03-12] MEDS: ASCORBIC ACID 500 MG TABLET PO SCH ×2 (09:30→17:11)
[2022-03-12] MEDS: ACETAMINOPHEN 325MG TABLET PO PRN (09:31)
[2022-03-12] MEDS: IBUPROFEN 400MG TABLET PO PRN (17:15)
[2022-03-12 19:59] VITALS: BP 99/45
[2022-03-12] MEDS: ATORVASTATIN CALCIUM 10MG TABLET PO SCH (21:00)
[2022-03-13 08:00] VITALS: BP 113/69
[2022-03-13] MEDS: POTASSIUM CHLORIDE 20MEQ TABLET SR PO SCH (09:12)
[2022-03-13] MEDS: POLYETHYLENE GLYCOL 3350 (17GM) 1 DOSE PACK PO SCH (09:12)
[2022-03-13] MEDS: ENOXAPARIN 40MG/0.4ML SYR SUBCUT SCH (09:13)
[2022-03-13] MEDS: FERROUS SULFATE 300MG/5ML UDC PO SCH ×2 (09:13→17:20)
[2022-03-13] MEDS: METHOCARBAMOL 500MG TABLET PO SCH ×3 (09:13→17:20)
[2022-03-13] MEDS: IBUPROFEN 400MG TABLET PO PRN ×2 (09:13→19:36)
[2022-03-13] MEDS: PANTOPRAZOLE 40MG DR TABLET PO SCH ×2 (09:13→17:20)
[2022-03-13] MEDS: QUETIAPINE FUMARATE 50MG TABLET PO SCH ×2 (09:13→17:20)
[2022-03-13] MEDS: ASCORBIC ACID 500 MG TABLET PO SCH ×2 (09:14→17:20)
[2022-03-13] MEDS: LEVETIRACETAM 500MG TABLET PO SCH ×2 (09:14→20:50)
[2022-03-13] MEDS: FOLIC ACID 1MG TABLET PO SCH (09:14)
[2022-03-13] MEDS: MAGNESIUM OXIDE 400MG TABLET PO SCH (09:14)
[2022-03-13] MEDS: DIPHENHYDRAMINE 25MG CAPSULE PO PRN (20:50)
[2022-03-13] MEDS: ATORVASTATIN CALCIUM 10MG TABLET PO SCH (20:50)
[2022-03-14 08:00] VITALS: BP 114/70
[2022-03-14] MEDS: POLYETHYLENE GLYCOL 3350 (17GM) 1 DOSE PACK PO SCH (09:00)
[2022-03-14] MEDS: SCOPOLAMINE HYDROBROMIDE PATCH 72HR TD SCH (09:00)
[2022-03-14] MEDS: FERROUS SULFATE 300MG/5ML UDC PO SCH ×2 (09:23→16:29)
[2022-03-14] MEDS: LEVETIRACETAM 500MG TABLET PO SCH ×2 (09:23→20:55)
[2022-03-14] MEDS: POTASSIUM CHLORIDE 20MEQ TABLET SR PO SCH (09:23)
[2022-03-14] MEDS: MAGNESIUM OXIDE 400MG TABLET PO SCH (09:24)
[2022-03-14] MEDS: METHOCARBAMOL 500MG TABLET PO SCH ×3 (09:24→16:30)
[2022-03-14] MEDS: ERGOCALCIFEROL 50000UNITS CAPSULE PO SCH (09:24)
[2022-03-14] MEDS: QUETIAPINE FUMARATE 50MG TABLET PO SCH ×2 (09:24→16:30)
[2022-03-14] MEDS: ASCORBIC ACID 500 MG TABLET PO SCH ×2 (09:24→16:30)
[2022-03-14] MEDS: PANTOPRAZOLE 40MG DR TABLET PO SCH ×2 (09:24→16:30)
[2022-03-14] MEDS: FOLIC ACID 1MG TABLET PO SCH (09:25)
[2022-03-14] MEDS: ENOXAPARIN 40MG/0.4ML SYR SUBCUT SCH (09:25)
[2022-03-14] MEDS: IBUPROFEN 400MG TABLET PO PRN ×2 (09:29→21:49)
[2022-03-14 19:56] VITALS: BP 95/58
[2022-03-14] MEDS: ATORVASTATIN CALCIUM 10MG TABLET PO SCH (20:54)
[2022-03-15 08:00] VITALS: BP 132/94
[2022-03-15] MEDS: POLYETHYLENE GLYCOL 3350 (17GM) 1 DOSE PACK PO SCH (09:00)
[2022-03-15] MEDS: QUETIAPINE FUMARATE 50MG TABLET PO SCH ×2 (10:43→18:10)
[2022-03-15] MEDS: FERROUS SULFATE 300MG/5ML UDC PO SCH ×2 (10:43→18:11)
[2022-03-15] MEDS: METHOCARBAMOL 500MG TABLET PO SCH ×3 (10:43→18:11)
[2022-03-15] MEDS: MAGNESIUM OXIDE 400MG TABLET PO SCH (10:43)
[2022-03-15] MEDS: ENOXAPARIN 40MG/0.4ML SYR SUBCUT SCH (10:43)
[2022-03-15] MEDS: IBUPROFEN 400MG TABLET PO PRN (10:44)
[2022-03-15] MEDS: PANTOPRAZOLE 40MG DR TABLET PO SCH ×2 (10:44→18:11)
[2022-03-15] MEDS: ASCORBIC ACID 500 MG TABLET PO SCH ×2 (10:44→18:10)
[2022-03-15] MEDS: LEVETIRACETAM 500MG TABLET PO SCH ×2 (10:44→20:52)
[2022-03-15] MEDS: POTASSIUM CHLORIDE 20MEQ TABLET SR PO SCH (10:45)
[2022-03-15] MEDS: FOLIC ACID 1MG TABLET PO SCH (10:45)
[2022-03-15] MEDS: SERTRALINE HCL 25MG TABLET PO SCH (13:52)
[2022-03-15 20:20] VITALS: BP 138/107
[2022-03-15] MEDS: ATORVASTATIN CALCIUM 10MG TABLET PO SCH (20:52)
[2022-03-15 21:05] VITALS: BP 116/80
[2022-03-16 08:00] VITALS: BP 109/73
[2022-03-16] MEDS: POLYETHYLENE GLYCOL 3350 (17GM) 1 DOSE PACK PO SCH (08:13)
[2022-03-16] MEDS: POTASSIUM CHLORIDE 20MEQ TABLET SR PO SCH (08:15)
[2022-03-16] MEDS: SERTRALINE HCL 25MG TABLET PO SCH (08:15)
[2022-03-16] MEDS: FOLIC ACID 1MG TABLET PO SCH (08:15)
[2022-03-16] MEDS: MAGNESIUM OXIDE 400MG TABLET PO SCH (08:15)
[2022-03-16] MEDS: FERROUS SULFATE 300MG/5ML UDC PO SCH ×2 (08:15→16:31)
[2022-03-16] MEDS: QUETIAPINE FUMARATE 50MG TABLET PO SCH ×2 (08:15→16:32)
[2022-03-16] MEDS: ENOXAPARIN 40MG/0.4ML SYR SUBCUT SCH (08:15)
[2022-03-16] MEDS: ASCORBIC ACID 500 MG TABLET PO SCH ×2 (08:16→16:32)
[2022-03-16] MEDS: LEVETIRACETAM 500MG TABLET PO SCH ×2 (08:16→20:41)
[2022-03-16] MEDS: METHOCARBAMOL 500MG TABLET PO SCH ×3 (08:16→16:32)
[2022-03-16] MEDS: PANTOPRAZOLE 40MG DR TABLET PO SCH ×2 (08:16→16:32)
[2022-03-16] MEDS: IBUPROFEN 400MG TABLET PO PRN (10:51)
[2022-03-16 12:47] LABS: BASOPHILS % 0.7 % (0.0-2.0); EOSINOPHILS % 2.5 % (0.0-5.0); HEMATOCRIT. 36.9 % (36.0-48.0); HEMOGLOBIN. 11.8 g/dL (12.0-16.0); LYMPHOCYTES % 33.7 % (20.0-50.0); MEAN CORPUSCULAR HEMOGLOBIN 28.7 pg (28.0-32.0); MEAN CORPUSCULAR VOLUME 89.6 fL (81.0-99.0); MEAN PLATELET VOLUME 8.7 fl (7.4-10.4); MONOCYTES % 7.5 % (2.0-8.0); NEUTROPHILS % 55.6 % (40.0-76.0); PLATELET 286 x1000/uL (130-400); RED BLOOD CELL COUNT 4.12 mill/uL (4.2-5.4); RED CELL DISTRIBUTION WIDTH 14.9 % (11.6-14.6)
[2022-03-16 12:58] LABS: CHLORIDE 106 mEq/L (98-107)
[2022-03-16] MEDS: ACETAMINOPHEN 325MG TABLET PO PRN (16:36)
[2022-03-16 20:00] VITALS: BP 101/56
[2022-03-16] MEDS: ATORVASTATIN CALCIUM 10MG TABLET PO SCH (20:41)
[2022-03-16] MEDS: DIPHENHYDRAMINE 25MG CAPSULE PO PRN (23:40)
[2022-03-17 08:00] VITALS: BP 100/58
[2022-03-17] MEDS: SCOPOLAMINE HYDROBROMIDE PATCH 72HR TD SCH (09:00)
[2022-03-17] MEDS: POLYETHYLENE GLYCOL 3350 (17GM) 1 DOSE PACK PO SCH (09:00)
[2022-03-17] MEDS: QUETIAPINE FUMARATE 50MG TABLET PO SCH ×2 (09:14→17:50)
[2022-03-17] MEDS: MAGNESIUM OXIDE 400MG TABLET PO SCH (09:14)
[2022-03-17] MEDS: ASCORBIC ACID 500 MG TABLET PO SCH ×2 (09:14→17:49)
[2022-03-17] MEDS: FERROUS SULFATE 300MG/5ML UDC PO SCH ×2 (09:14→17:49)
[2022-03-17] MEDS: ENOXAPARIN 40MG/0.4ML SYR SUBCUT SCH (09:14)
[2022-03-17] MEDS: FOLIC ACID 1MG TABLET PO SCH (09:14)
[2022-03-17] MEDS: PANTOPRAZOLE 40MG DR TABLET PO SCH ×2 (09:14→17:49)
[2022-03-17] MEDS: METHOCARBAMOL 500MG TABLET PO SCH ×3 (09:14→17:49)
[2022-03-17] MEDS: POTASSIUM CHLORIDE 20MEQ TABLET SR PO SCH (09:14)
[2022-03-17] MEDS: SERTRALINE HCL 25MG TABLET PO SCH (09:15)
[2022-03-17] MEDS: IBUPROFEN 400MG TABLET PO PRN (09:19)
[2022-03-17] MEDS: ACETAMINOPHEN 325MG TABLET PO PRN (12:53)
[2022-03-17 20:00] VITALS: BP 102/56
[2022-03-17] MEDS: LEVETIRACETAM 500MG TABLET PO SCH (20:25)
[2022-03-17] MEDS: ATORVASTATIN CALCIUM 10MG TABLET PO SCH (20:25)
[2022-03-17] MEDS: DIPHENHYDRAMINE 25MG CAPSULE PO PRN (20:25)
[2022-03-18 08:00] VITALS: BP 105/58
[2022-03-18] MEDS: POLYETHYLENE GLYCOL 3350 (17GM) 1 DOSE PACK PO SCH (09:00)
[2022-03-18] MEDS: SERTRALINE HCL 25MG TABLET PO SCH (09:01)
[2022-03-18] MEDS: QUETIAPINE FUMARATE 50MG TABLET PO SCH ×2 (09:01→16:29)
[2022-03-18] MEDS: FOLIC ACID 1MG TABLET PO SCH (09:01)
[2022-03-18] MEDS: METHOCARBAMOL 500MG TABLET PO SCH ×3 (09:01→16:29)
[2022-03-18] MEDS: ASCORBIC ACID 500 MG TABLET PO SCH ×2 (09:01→16:29)
[2022-03-18] MEDS: FERROUS SULFATE 300MG/5ML UDC PO SCH ×2 (09:01→16:28)
[2022-03-18] MEDS: PANTOPRAZOLE 40MG DR TABLET PO SCH ×2 (09:01→16:29)
[2022-03-18] MEDS: MAGNESIUM OXIDE 400MG TABLET PO SCH (09:01)
[2022-03-18] MEDS: POTASSIUM CHLORIDE 20MEQ TABLET SR PO SCH (09:01)
[2022-03-18] MEDS: IBUPROFEN 400MG TABLET PO PRN (09:02)
[2022-03-18] MEDS: ENOXAPARIN 40MG/0.4ML SYR SUBCUT SCH (09:45)
[2022-03-18 09:59] LABS: BASOPHILS % 1.2 % (0.0-2.0); EOSINOPHILS % 2.4 % (0.0-5.0); HEMATOCRIT. 38.1 % (36.0-48.0); HEMOGLOBIN. 12.2 g/dL (12.0-16.0); LYMPHOCYTES % 30.9 % (20.0-50.0); MEAN CORPUSCULAR HEMOGLOBIN 28.5 pg (28.0-32.0); MONOCYTES % 5.5 % (2.0-8.0); PLATELET 276 x1000/uL (130-400); RED BLOOD CELL COUNT 4.28 mill/uL (4.2-5.4); RED CELL DISTRIBUTION WIDTH 15.1 % (11.6-14.6)
[2022-03-18 10:12] LABS: CHLORIDE 107 mEq/L (98-107)
[2022-03-18] MEDS: ACETAMINOPHEN 325MG TABLET PO PRN (14:15)
[2022-03-18 19:58] VITALS: BP 108/74
[2022-03-18] MEDS: LEVETIRACETAM 500MG TABLET PO SCH (21:28)
[2022-03-18] MEDS: ATORVASTATIN CALCIUM 10MG TABLET PO SCH (21:28)
[2022-03-18] MEDS: DIPHENHYDRAMINE 25MG CAPSULE PO PRN (21:29)
[2022-03-19 08:00] VITALS: BP 122/81
[2022-03-19] MEDS: POLYETHYLENE GLYCOL 3350 (17GM) 1 DOSE PACK PO SCH (08:51)
[2022-03-19] MEDS: QUETIAPINE FUMARATE 50MG TABLET PO SCH ×2 (08:53→16:16)
[2022-03-19] MEDS: FERROUS SULFATE 300MG/5ML UDC PO SCH ×2 (08:53→16:15)
[2022-03-19] MEDS: METHOCARBAMOL 500MG TABLET PO SCH ×3 (08:53→16:16)
[2022-03-19] MEDS: PANTOPRAZOLE 40MG DR TABLET PO SCH ×2 (08:53→16:16)
[2022-03-19] MEDS: MAGNESIUM OXIDE 400MG TABLET PO SCH (08:53)
[2022-03-19] MEDS: ENOXAPARIN 40MG/0.4ML SYR SUBCUT SCH (08:53)
[2022-03-19] MEDS: SERTRALINE HCL 25MG TABLET PO SCH (08:53)
[2022-03-19] MEDS: FOLIC ACID 1MG TABLET PO SCH (08:53)
[2022-03-19] MEDS: ASCORBIC ACID 500 MG TABLET PO SCH ×2 (08:53→16:16)
[2022-03-19] MEDS: POTASSIUM CHLORIDE 20MEQ TABLET SR PO SCH (08:54)
[2022-03-19] MEDS: IBUPROFEN 400MG TABLET PO PRN (08:57)
[2022-03-19 20:00] VITALS: BP 92/57
[2022-03-19] MEDS: LEVETIRACETAM 500MG TABLET PO SCH (20:25)
[2022-03-19] MEDS: ATORVASTATIN CALCIUM 10MG TABLET PO SCH (20:25)
[2022-03-19] MEDS: DIPHENHYDRAMINE 25MG CAPSULE PO PRN (20:29)
[2022-03-20 08:00] VITALS: BP 103/79
[2022-03-20] MEDS: SCOPOLAMINE HYDROBROMIDE PATCH 72HR TD SCH (09:00)
[2022-03-20] MEDS: POLYETHYLENE GLYCOL 3350 (17GM) 1 DOSE PACK PO SCH (09:00)
[2022-03-20] MEDS: FERROUS SULFATE 300MG/5ML UDC PO SCH ×2 (09:18→16:47)
[2022-03-20] MEDS: METHOCARBAMOL 500MG TABLET PO SCH ×3 (09:18→16:47)
[2022-03-20] MEDS: POTASSIUM CHLORIDE 20MEQ TABLET SR PO SCH (09:19)
[2022-03-20] MEDS: QUETIAPINE FUMARATE 50MG TABLET PO SCH ×2 (09:19→16:48)
[2022-03-20] MEDS: PANTOPRAZOLE 40MG DR TABLET PO SCH ×2 (09:19→16:47)
[2022-03-20] MEDS: ASCORBIC ACID 500 MG TABLET PO SCH ×2 (09:19→16:47)
[2022-03-20] MEDS: FOLIC ACID 1MG TABLET PO SCH (09:19)
[2022-03-20] MEDS: SERTRALINE HCL 25MG TABLET PO SCH (09:19)
[2022-03-20] MEDS: MAGNESIUM OXIDE 400MG TABLET PO SCH (09:19)
[2022-03-20] MEDS: ENOXAPARIN 40MG/0.4ML SYR SUBCUT SCH (09:20)
[2022-03-20] MEDS: IBUPROFEN 400MG TABLET PO PRN (09:21)
[2022-03-20 20:00] VITALS: BP 103/63
[2022-03-20] MEDS: ATORVASTATIN CALCIUM 10MG TABLET PO SCH (20:31)
[2022-03-20] MEDS: DIPHENHYDRAMINE 25MG CAPSULE PO PRN (20:32)
[2022-03-20] MEDS: LEVETIRACETAM 500MG TABLET PO SCH (20:32)
[2022-03-21 08:00] VITALS: BP 116/78
[2022-03-21] MEDS: ASCORBIC ACID 500 MG TABLET PO SCH ×2 (09:00→17:37)
[2022-03-21] MEDS: POLYETHYLENE GLYCOL 3350 (17GM) 1 DOSE PACK PO SCH (09:00)
[2022-03-21] MEDS: FERROUS SULFATE 300MG/5ML UDC PO SCH (10:05)
[2022-03-21] MEDS: MAGNESIUM OXIDE 400MG TABLET PO SCH (10:05)
[2022-03-21] MEDS: ERGOCALCIFEROL 50000UNITS CAPSULE PO SCH (10:05)
[2022-03-21] MEDS: POTASSIUM CHLORIDE 20MEQ TABLET SR PO SCH (10:05)
[2022-03-21] MEDS: QUETIAPINE FUMARATE 50MG TABLET PO SCH ×2 (10:06→17:37)
[2022-03-21] MEDS: METHOCARBAMOL 500MG TABLET PO SCH (10:06)
[2022-03-21] MEDS: SERTRALINE HCL 25MG TABLET PO SCH (10:06)
[2022-03-21] MEDS: FOLIC ACID 1MG TABLET PO SCH (10:06)
[2022-03-21] MEDS: PANTOPRAZOLE 40MG DR TABLET PO SCH (10:06)
[2022-03-21] MEDS: ENOXAPARIN 40MG/0.4ML SYR SUBCUT SCH (10:11)
[2022-03-21 19:36] VITALS: BP 104/62
[2022-03-21] MEDS: ATORVASTATIN CALCIUM 10MG TABLET PO SCH (21:09)
[2022-03-21] MEDS: LEVETIRACETAM 500MG TABLET PO SCH (21:10)
[2022-03-21] MEDS: DIPHENHYDRAMINE 25MG CAPSULE PO PRN (21:13)
[2022-03-22 06:41] LABS: BASOPHILS % 0.7 % (0.0-2.0); EOSINOPHILS % 2.3 % (0.0-5.0); HEMATOCRIT. 34.3 % (36.0-48.0); HEMOGLOBIN. 11.1 g/dL (12.0-16.0); LYMPHOCYTES % 29.4 % (20.0-50.0); MEAN CORPUSCULAR HEMOGLOBIN 28.7 pg (28.0-32.0); MEAN CORPUSCULAR VOLUME 88.4 fL (81.0-99.0); MEAN PLATELET VOLUME 8.6 fl (7.4-10.4); MONOCYTES % 8.3 % (2.0-8.0); NEUTROPHILS % 59.3 % (40.0-76.0); PLATELET 254 x1000/uL (130-400); RED BLOOD CELL COUNT 3.88 mill/uL (4.2-5.4)
[2022-03-22 07:29] LABS: CHLORIDE 107 mEq/L (98-107)
[2022-03-22 08:00] VITALS: BP 119/77
[2022-03-22] MEDS: SERTRALINE HCL 25MG TABLET PO SCH (08:08)
[2022-03-22] MEDS: ASCORBIC ACID 500 MG TABLET PO SCH (08:08)
[2022-03-22] MEDS: ENOXAPARIN 40MG/0.4ML SYR SUBCUT SCH (08:08)
[2022-03-22] MEDS: FOLIC ACID 1MG TABLET PO SCH (08:08)
[2022-03-22 10:06] VITALS: BP 119/77
== END 2022-03-22 14:16 | disposition home health service (06) | DRG 55 ==
LOC: EDBD 19:37
PROVIDERS: ADMIT Physical Medicine & Rehabilitation Spinal Cord Injury Medicine; ATTEND Family Medicine Adult Medicine
DX: S06.5X9A Traumatic subdural hemorrhage with loss of consciousness of unspecified duration, initial encounter (principal); J96.00 Acute respiratory failure, unspecified whether with hypoxia or hypercapnia; E46 Unspecified protein-calorie malnutrition; D62 Acute posthemorrhagic anemia; G81.91 Hemiplegia, unspecified affecting right dominant side; R47.01 Aphasia; T81.41XA Infection following a procedure, superficial incisional surgical site, initial encounter; S06.6X9A Traumatic subarachnoid hemorrhage with loss of consciousness of unspecified duration, initial encounter; S01.01XA Laceration without foreign body of scalp, initial encounter; D50.9 Iron deficiency anemia, unspecified; E53.8 Deficiency of other specified B group vitamins; E55.9 Vitamin D deficiency, unspecified; E78.00 Pure hypercholesterolemia, unspecified; F31.9 Bipolar disorder, unspecified; G40.509 Epileptic seizures related to external causes, not intractable, without status epilepticus; G44.209 Tension-type headache, unspecified, not intractable; G47.00 Insomnia, unspecified; H73.892 Other specified disorders of tympanic membrane, left ear; K59.00 Constipation, unspecified; N39.0 Urinary tract infection, site not specified; N94.6 Dysmenorrhea, unspecified; Z82.49 Family history of ischemic heart disease and other diseases of the circulatory system; Z87.891 Personal history of nicotine dependence; Z91.410 Personal history of adult physical and sexual abuse; W22.8XXA Striking against or struck by other objects, initial encounter; S02.91XA Unspecified fracture of skull, initial encounter for closed fracture; R26.9 Unspecified abnormalities of gait and mobility; R53.81 Other malaise; Y93.89 Activity, other specified; Y92.89 Other specified places as the place of occurrence of the external cause; Y99.8 Other external cause status; Z68.31 Body mass index [BMI] 31.0-31.9, adult
CPT/HCPCS: 36415; 70551; 73521; 80048; 80053; 80061; 80200; 81003; 82140; 82270; 82306; 82607; 82728; 82746; 82977; 83036; 83540; 83550; 84443; 84703; 85025; 85044; 87077; 87186; 92523; 92610; 93970; 97110; 97112; 97116; 97162; 97166; 97530; 97535; 97542; 97760; A4565; J1650; J1953; J2185; J2248; J3260; J3420; J7050; J7060; Q0163

== ENCOUNTER 2023-08-20 17:58 | Emergency (ER) | payer MEDICAID, OTHER ==
[~2023-08-20] VITALS: Ht 167.6 cm; Wt 82.0 kg
[~2023-08-20 17:58] MED LIST: KEPP500 PO; QUET25TA PO
[2023-08-20 18:06] VITALS: O2SAT 98
[2023-08-20 19:14] LABS: HEMATOCRIT. 36.4 % (36.0-48.0); HEMOGLOBIN. 11.8 g/dL (12.0-16.0); MEAN CORPUSCULAR HEMOGLOBIN 28.9 pg (28.0-32.0); MEAN CORPUSCULAR HGB CONC 32.4 g/dL (31.0-37.0); MEAN CORPUSCULAR VOLUME 89.3 fL (81.0-99.0); MEAN PLATELET VOLUME 7.9 fl (7.4-10.4); PLATELET 233 x1000/uL (130-400); RED BLOOD CELL COUNT 4.08 mill/uL (4.2-5.4); RED CELL DISTRIBUTION WIDTH 13.8 % (11.6-14.6); WHITE BLOOD COUNT 4.9 x1000/uL (4.5-11.0)
[2023-08-20 19:15] LABS: DIFFERENTIAL COMMENT 1
[2023-08-20 19:28] LABS: ALANINE AMINOTRANSFERASE 8 IU/L (10-49); ALBUMIN 3.8 g/dL (3.2-4.8); ASPARTATE AMINOTRANSFERASE 17 IU/L (<34); BILIRUBIN TOTAL 0.8 mg/dL (0.1-1.0); CALCIUM 8.8 mg/dL (8.7-10.4); CARBON DIOXIDE 29 mEq/L (21-32); CHLORIDE 105 mEq/L (98-107); CREATININE 0.8 mg/dL (0.6-1.0); GLUCOSE 104 mg/dL (70-105); POTASSIUM 4.1 mEq/L (3.5-5.1); PROTEIN TOTAL 6.7 g/dL (6.0-8.3); SODIUM 138 mEq/L (136-145); UREA NITROGEN BLOOD 10 mg/dL (9-23)
[2023-08-20 19:37] LABS: ETHANOL BLOOD < 10 mg/dL (<10)
[2023-08-20 19:43] LABS: HCG SCREEN NEGATIVE
[2023-08-20 19:47] LABS: PLATELET ESTIMATE NORMAL
[2023-08-20] MEDS: LEVETIRACETAM 500MG TABLET PO ONE (20:18)
[2023-08-20 21:41] VITALS: BP 131/70; PULSE 133; RESP 17; TEMP 98.9
== END 2023-08-20 21:43 | disposition home or self-care (01) ==
LOC: ER 17:58
DX: R56.9 Unspecified convulsions (principal); F31.9 Bipolar disorder, unspecified
CPT/HCPCS: 80053; 80320; 84703; 85025; 36415; 99283; C1893; G0480